=== PATIENT | female | born 1955 | race Hispanic/Latino ===

== ENCOUNTER 2017-03-03 06:06 | Day surgery (SDC) | payer OTHER ==
[2015-09-01 06:34] VITALS: BMI 29.0
[2017-03-03 06:51] VITALS: RESP 18
[2017-03-03] MEDS ORDERED: Propofol 10 mg/ml Inj (20 ML) ONE ×2 (07:09→07:55)
[2017-03-03] MEDS ORDERED: Lidocaine Hydrochloride 5 ML INJ ONE (07:09)
[2017-03-03] MEDS ORDERED: MethylPREDNISolone Depo 40 mg/ml Inj ONE ×3 (07:12→07:53)
[2017-03-03] MEDS ORDERED: Iohexol 300 10 ML ONE (07:13)
[2017-03-03] MEDS ORDERED: Bupivacaine HCl 0.25% PF (10 ml) Inj ONE (07:13)
[2017-03-03] MEDS ORDERED: Lidocaine 1% 20 MG/2 ML PF AMP ONE (07:14)
[2017-03-03] MEDS ORDERED: Lidocaine 1% Inj (20ml) ONE (07:14)
[2017-03-03] MEDS ORDERED: Lactated Ringer's 1,000 ML IV ONE (07:36)
[2017-03-03] MEDS ORDERED: Bupivacaine HCl 0.5% PF (10 ml) Inj ONE (07:54)
[2017-03-03] MEDS ORDERED: Dexamethasone 4 mg/1 ml ONE (07:57)
[2017-03-03] MEDS ORDERED: Lactated Ringer's 1,000 ML IV SCH (08:12)
--- NOTE | 2017-03-03 09:33 | RAD ---
PROCEDURE: Intraoperative Fluoroscopy. HISTORY: PAIN MANAGEMENT FINDINGS: Fluoroscopic assistance was provided. 85.4 seconds fluoroscopy time utilized this procedure. Radiation dose = 25.00 mGy.
--- NOTE | 2017-03-03 09:35 | OP ---
PROCEDURE DATE: 03/03/2017 PREOPERATIVE DIAGNOSIS: Lumbar spondylosis. POSTOPERATIVE DIAGNOSIS: Lumbar spondylosis. PROCEDURES: L4-L5 interlaminar epidural steroid injection and bilateral L3, L4, and L5 medial branch nerve block. ANESTHESIOLOGIST: Dr. Day SURGEON: Dr. Trevino ANESTHESIA TYPE: Monitored anesthesia care. COMPLICATIONS: None. SPECIMEN: None. DESCRIPTION OF PROCEDURE: After re-discussion of the procedure with the patient including its risks, benefits, alternatives, outcome data, possibility of no effect or increased pain, the patient consen thea to the procedure. She denies any recent infections, bleeding tendencies, or being on anticoagula nts. The decision was then made to proceed to the OR. The patient was brought into the OR and placed on the fluoroscopy table in a prone position. The low er back was prepped and draped in a usual sterile fashion and sterile technique was adhered to during the entire procedure. The L4-L5 interlaminar space was first identified in the anterior-posterior v iew. The patient turns out to have an L6 vertebral level. For the purpose of this injection, the ve rtebra above the sacrum was designated the L5 vertebra. The skin overlying the L4-L5 interlaminar sp joel was then infiltrated with 1% lidocaine using a 25 gauge needle. Subsequently, a 20 gauge 3-1/2 i [facility] spinal needle was then incrementally advanced under fluoroscopic guidance using loss of resistanc e technique with the majority of needle advancement under the lateral fluoroscopy view until the epid ural space was reached at approximately 9 cm depth. This was confirmed by injecting approximately 1 mL of Isovue contrast. After appropriate placement of the needle, approximately 5 mL of a 0.25% Kiran kristin, Depo-Medrol, and normal saline mixture was gradually injected. The needle was then removed. Then the medial branch procedure was performed. The L3, L4, and L5 medial branch nerves are located at the intersection of the superior articular process and the transverse process of the L4 and L5 ped icles along with the sacral ala. The skin overlying the 3 above target areas on the right side was t hen infiltrated with 1% lidocaine using a 25 gauge needle. Subsequently, a 25 gauge 3-1/2 inch spina l needle was then incrementally advanced under fluoroscopic guidance until tip of needle made bony co ntact with all 3 target areas. After satisfactory positioning of all 3 needles, approximately 2 mL o f a 0.5% Marcaine and Depo-Medrol mixture was injected. The needle was then removed and the same exa ct procedure was performed on the contralateral left side using the same medications and techniques. At the end of the case, the patient's back was cleaned and dried and Band-Aids were applied. The patient was then transferred to the recovery area in good condition without any signs of [employer] [place] or any neurological deficits. She will have a followup in the office in approximately 2-4 weeks . En-Mati Trevino MD cc: [id number] TT: 03/03/2017 09:34:39 en
[2017-03-03 11:14] VITALS: TEMP 98; O2SAT 95
[2017-03-03 13:28] VITALS: BP 138/69; PULSE 74
== END 2017-03-03 13:15 | disposition home or self-care (01) ==
LOC: H.OPSURG 06:06
PROVIDERS: ATTEND Anesthesiology
DX: M54.16 Radiculopathy, lumbar region (principal); M47.816 Spondylosis without myelopathy or radiculopathy, lumbar region

== ENCOUNTER 2017-05-03 11:04 | Emergency (ER) | payer OTHER ==
[2017-05-03 11:05] VITALS: BMI 29.0
[2017-05-03 11:21] VITALS: BP 144/69; PULSE 74; RESP 18; TEMP 98; O2SAT 99
--- NOTE | 2017-05-03 11:52 | ED PDOC ---
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 She denies head injury or LOC as a result of fall, no dizziness or syncope prior to fall. No other injuries besides right knee injury were sustained. Patient took ibuprofen 800 mg prior to coming to ED and she applied ice to affected area. Past Medical History Reviewed: Historical Data, Nursing Documentation, Vital Signs Vital Signs: Last Vital Signs Temp 98.0 F 05/03/17 11:15 Pulse 74 05/03/17 11:15 Resp 18 05/03/17 11:15 BP 144/69 05/03/17 11:15 Pulse Ox 99 05/03/17 11:15 - Medical History PMH: Back Problems - Surgical History Surgical History: Tonsillectomy - Family History Family History: States: No Known Family Hx - Living Arrangements Living Arrangements: With Family - Social History Current smoker - smoking cessation education provided: No Alcohol: None Drugs: Denies - Home Medications Home Medications: Ambulatory Orders Medication Instructions Recorded Ibuprofen [Motrin Tab] 800 mg PO BID PRN 09/01/15 Pregabalin [Lyrica] 100 mg PO QAM 09/01/15 Pregabalin [Lyrica] 50 mg PO QPM 03/03/17 Cyclobenzaprine [Cyclobenzaprine 10 mg PO TID PRN #20 tab 05/03/17 HCl] - Allergies Allergies/Adverse Reactions: Allergies Allergy/AdvReac Type Severity Reaction Status Date / Time No Known Allergies Allergy Verified 03/03/17 06:25 Wells Criteria for PE - Wells Criteria for Pulmonary Embolism Clinical Signs and Symptoms of DVT: No P.E is #1 Diagnosis, or Equally Likely: No Heart Rate >100: No Immobilization at least 3 days;Surgery previous 4 weeks: No Previous, objectively diagnosed PE or DVT: No Hemoptysis: No Malignancy w/treatment within 6 months, or palliative: No Total Score: 0 Review of Systems ROS Statement: Except As Marked, All Systems Reviewed And Found Negative Musculoskeletal: Positive for: Other (right knee injury s/p fall) Neurological: Positive for: Other (denies head injury or LOC) Physical Exam - Reviewed Nursing Documentation Reviewed: Yes Vital Signs Reviewed: Yes - Physical Exam Appears: Positive for: Well, Non-toxic, No Acute Distress Skin: Negative for: Rash Eye Exam: Positive for: Normal appearance Extremity: Positive for: Other (Mild tenderness to right patellar region with full range of motion of right knee, mild soft tissue swelling, swelling or tenderness, normal distal sensation) Neurologic/Psych: Positive for: Alert, Oriented - ECG O2 Sat by Pulse Oximetry: 99 Pulse Ox Interpretation: Normal - Other Rad Right knee x-ray X-Ray: Interpreted by Me, Viewed By Me X-Ray Interpretation: no fx, no dis Medical Decision Making Medical Decision Makin62 year old with right knee trauma Plan: X-ray right knee Patient took motrin prior to arrival in ED Patient aware of x-ray results, all questions answered. Rahul wrap was applied to right knee. Patient declined knee immobilizer. Crutches were declined swell. Patient was advised to continue with ibuprofen for pain was also given prescription for Flexeril along with referral to orthopedist. Disposition - Clinical Impression Clinical Impression: Knee injury, Knee sprain Counseled Patient/Family Regarding: Studies Performed, Diagnosis, Need For Followup, Rx Given - Disposition Referrals: Eric Davenport MD [Primary Care Provider] - Disposition: Routine/Home Disposition Time: 13:11 Condition: STABLE Additional Instructions: Ice, rest and elevate affected area. Take ibuprofen for pain along with prescription meds. Follow up with employee health or orthopedist. Prescriptions: Cyclobenzaprine [Cyclobenzaprine HCl] 10 mg PO TID PRN #20 tab PRN Reason: Muscle Spasm Instructions: Knee Sprain (ED) Forms: [facility] ([place]), [facility] ED School/Work Excuse
--- NOTE | 2017-05-03 14:28 | RAD ---
PROCEDURE: Right Knee Radiographs. HISTORY: trauma COMPARISON: None. FINDINGS: BONES: Normal. No fracture. JOINTS: Normal. No osteoarthritis. JOINT EFFUSION: None. OTHER FINDINGS: None. IMPRESSION: No evidence acute displaced fracture nor dislocation. .
== END 2017-05-03 13:23 | disposition home or self-care (01) ==
LOC: H.ER 11:04 → SUPCPDRO 11:04 → H.ER 13:23
DX: S83.91XA Sprain of unspecified site of right knee, initial encounter (principal); W19.XXXA Unspecified fall, initial encounter; Y99.0 Civilian activity done for income or pay